=== PATIENT | female | born 1975 | race Caucasian/White ===

== ENCOUNTER 2019-03-05 07:32 | Emergency (ER) | payer MEDICAID, OTHER ==
[~2019-03-05] VITALS: Ht 180.3 cm; Wt 118.2 kg
[2019-03-05] MEDS ORDERED: VRAY3CAP PO (07:37)
[2019-03-05 08:05] LABS: BASO # 0.1 10^3/uL (0.0-0.2); BASO % 0.5 % (0.0-1.0); EOS # 0.4 10^3/uL (0.0-0.50); EOS % 2.8 % (0.0-3.0); HEMATOCRIT 47.3 % (36.0-47.0); HEMOGLOBIN 15.3 g/dl (12.0-15.5); LYMPH % 30.6 % (24.0-44.0); MEAN CORPUSCULAR HGB CONC 32.3 g/dl (32.0-36.5); MEAN CORPUSCULAR VOLUME 86.5 fl (80.0-96.0); MONO % 7.4 % (0.0-5.0); NEUTROPHILS # 7.6 10^3/uL (1.8-7.7); NEUTROPHILS % 58.3 % (36.0-66.0); PLATELET COUNT, AUTOMATED 324 10^3/uL (150-450); RED BLOOD COUNT 5.47 10^6/uL (4.00-5.40); WHITE BLOOD COUNT 13.1 10^3/uL (4.0-10.0)
[2019-03-05] MEDS ORDERED: METOCLOPRAMIDE INJ 10MG/2ML VIAL (J2765) IV ONE (08:30)
[2019-03-05] MEDS ORDERED: KETOROLAC 30 MG/ML VIAL (J1885) IV ONE (08:30)
[2019-03-05] MEDS ORDERED: diphenhydrAMINE INJ 50MG/ML VIAL (J1200) IV ONE (08:30)
[2019-03-05 08:38] LABS: HCG, SERUM QUALITATIVE NEGATIVE (NEGATIVE)
[2019-03-05 08:41] LABS: ALBUMIN 3.5 GM/DL (3.2-5.2); ALT/SGPT 21 U/L (12-78); BILIRUBIN,DIRECT < 0.1 MG/DL (0.0-0.2); BILIRUBIN,TOTAL 0.4 MG/DL (0.2-1.0); BLOOD UREA NITROGEN 7 MG/DL (7-18); CARBON DIOXIDE LEVEL 25 MEQ/L (21-32); CHLORIDE LEVEL 106 MEQ/L (98-107); CREATININE FOR GFR 0.98 MG/DL (0.55-1.30); GLOMERULAR FILTRATION RATE > 60.0 (>58); GLUCOSE, FASTING 94 MG/DL (70-100); LIPASE 114 U/L (73-393); POTASSIUM SERUM 4.7 MEQ/L (3.5-5.1); SODIUM LEVEL 140 MEQ/L (136-145); TOTAL PROTEIN 7.5 GM/DL (6.4-8.2)
[2019-03-05 09:19] VITALS: BP 155/94
[2019-03-05] MEDS ORDERED: FLOM0.4C39 PO (10:31)
[2019-03-05] MEDS ORDERED: PERC5TAB12 PO (10:31)
--- NOTE | 2019-03-06 09:29 | REP ---
CT abdomen and pelvis without IV or oral contrast: History: Left flank pain. Evaluate for urolithiasis. No comparison study. Findings: Preliminary digital advertising agent radiograph shows an unremarkable bowel gas pattern. There are clips in the gallbladder fossa. The lung bases are clear on axial CT images. The liver and the spleen are both borderline enlarged but homogeneous. Spleen measures 13 cm in greatest dimension and vertical span of the liver is 17.7 cm. No focal lesion is seen. No adrenal lesion is observed. Pancreas is unremarkable. Small and large intestinal bowel loops are normal in the abdomen and pelvis. There are normal sized mesenteric lymph nodes in the right lower quadrant. A normal short appendix is seen posterior to the cecal tip. No inflammatory changes. No uterine or ovarian abnormality is appreciated. Urinary bladder is intact. There is moderate left-sided hydronephrosis. There is a 3 mm calculus in the proximal ureter at the ureteropelvic junction. There is some periureteral edema at this level. No other ureteral calculus is observed. No right-sided urinary tract calculus is seen. Bone window settings show no bony destructive lesion. There is a right-sided L5 spondylolysis. There is no spondylolisthesis. There are degenerative facet changes at L5-S1 on the left. Impression: Moderate left-sided hydronephrosis due to an obstructing 3 mm left proximal ureteral calculus. The patient is status post cholecystectomy. Borderline hepatic and splenic enlargement. Electronically Signed by Jacobo Foster MD 03/05/2019 09:23 A
== END 2019-03-05 10:50 | disposition home or self-care (01) ==
LOC: M ED 07:32
DX: N20.1 Calculus of ureter (principal); N23 Unspecified renal colic; F31.9 Bipolar disorder, unspecified; F17.200 Nicotine dependence, unspecified, uncomplicated; Z79.899 Other long term (current) drug therapy; Z87.442 Personal history of urinary calculi; Z88.8 Allergy status to other drugs, medicaments and biological substances
CPT/HCPCS: 74176; 80048; 80076; 81001; 83690; 84703; 85025; 96374; 96375; 99284; J1200; J1885; J2765

== ENCOUNTER → 2019-03-07 | Outpatient (CLI) | payer MEDICAID, OTHER ==
[~2019-03-07] MED LIST: FLOM0.4C39 PO; PERC5TAB12 PO; VRAY3CAP PO
[2019-03-08 09:59] LABS: RUBELLA IgG QUALITATIVE IMMUNE (IMMUNE)
[2019-03-09 08:06] LABS: MUMPS VIRUS IgG ANTIBODY 43.1 AU/mL (Immune >10.9)
== END ==
LOC: M WUC 16:47
PROVIDERS: ATTEND Physician Assistant
DX: Z02.1 Encounter for pre-employment examination (principal)

== ENCOUNTER 2019-03-29 18:57 | Emergency (ER) | payer MEDICAID, OTHER ==
[~2019-03-29] VITALS: Ht 180.3 cm; Wt 127.3 kg
[2019-03-29] MEDS ORDERED: CLON1TAB17 PO (20:13)
[2019-03-29] MEDS ORDERED: CEFU1TAB22 PO (20:13)
[2019-03-29 20:48] LABS: HEMATOCRIT 45.6 % (36.0-47.0); HEMOGLOBIN 15.1 g/dl (12.0-15.5); MEAN CORPUSCULAR HEMOGLOBIN 28.9 pg (27.0-33.0); MEAN CORPUSCULAR HGB CONC 33.1 g/dl (32.0-36.5); MEAN CORPUSCULAR VOLUME 87.2 fl (80.0-96.0); PLATELET COUNT, AUTOMATED 311 10^3/uL (150-450); RED BLOOD COUNT 5.23 10^6/uL (4.00-5.40)
[2019-03-29 20:52] LABS: WHITE BLOOD COUNT 15.7 10^3/uL (4.0-10.0)
[2019-03-29 21:12] LABS: ATYPICAL LYMPH 1 % (0-5); EOSINOPHILS 5 % (0-5); LYMPHOCYTES 32 % (16-52); MONOCYTES 8 % (0-8); NEUTROPHILS 54 % (35-75)
[2019-03-29 21:13] LABS: PLATELET ESTIMATE NORMAL (NORMAL)
[2019-03-29 21:45] LABS: ALBUMIN 3.6 GM/DL (3.2-5.2); ALT/SGPT 29 U/L (12-78); BILIRUBIN,DIRECT < 0.1 MG/DL (0.0-0.2); BILIRUBIN,TOTAL 0.3 MG/DL (0.2-1.0); BLOOD UREA NITROGEN 10 MG/DL (7-18); CALCIUM LEVEL 9.2 MG/DL (8.5-10.1); CARBON DIOXIDE LEVEL 27 MEQ/L (21-32); CHLORIDE LEVEL 109 MEQ/L (98-107); CREATININE FOR GFR 0.98 MG/DL (0.55-1.30); GLOMERULAR FILTRATION RATE > 60.0 (>58); GLUCOSE, FASTING 88 MG/DL (70-100); POTASSIUM SERUM 4.4 MEQ/L (3.5-5.1); SODIUM LEVEL 141 MEQ/L (136-145); TOTAL PROTEIN 7.6 GM/DL (6.4-8.2)
[2019-03-29] MEDS ORDERED: CETI10CA2 PO (21:53)
[2019-03-29] MEDS ORDERED: FLON1SPR NARES (21:53)
[2019-03-29 21:56] VITALS: BP 143/96
[2019-03-29 23:14] LABS: VITAMIN B12 LEVEL 437 PG/ML (247-911)
== END 2019-03-29 22:01 | disposition home or self-care (01) ==
LOC: M ED 18:57
DX: H65.00 Acute serous otitis media, unspecified ear (principal); J45.909 Unspecified asthma, uncomplicated; I10 Essential (primary) hypertension; F31.9 Bipolar disorder, unspecified; F41.9 Anxiety disorder, unspecified; F43.10 Post-traumatic stress disorder, unspecified; F90.9 Attention-deficit hyperactivity disorder, unspecified type; Z79.899 Other long term (current) drug therapy; Z88.8 Allergy status to other drugs, medicaments and biological substances